=== PATIENT | male | born 1950 | race African-American/Black ===

== ENCOUNTER → 2025-05-17 | Outpatient (REF) | payer MEDICARE | LOC: CARD 11:06 | PROVIDERS: ATTEND Podiatrist | DX: E11.621 Type 2 diabetes mellitus with foot ulcer (principal); L97.519 Non-pressure chronic ulcer of other part of right foot with unspecified severity; I77.1 Stricture of artery; I99.8 Other disorder of circulatory system | CPT/HCPCS: 93922; 93925 ==